=== PATIENT | male | born 1980 | race African-American/Black ===

== ENCOUNTER 2021-05-20 17:57 | Inpatient (IN) | payer BC ==
[~2021-05-20] VITALS: Ht 195.6 cm; Wt 108.9 kg
[2021-05-20 18:14] VITALS: BP 108/68
[2021-05-20 19:15] LABS: ABSOLUTE NEUTROPHILS 3.4 thou/uL (1.4-8.2); BASOPHILS 0.5 % (0.0-2.0); HEMATOCRIT 42.6 % (42.0-52.0); MCH 28.6 pg (26.0-34.0); MCHC 35.2 g/dL (28.0-37.0); MCV 81.4 fL (80.0-100.0); MONOCYTES 11.9 % (1.0-8.0); PLATELET COUNT 368 thou/uL (150-400); POLYS 73.6 % (36.0-66.0); RBC 5.23 mil/uL (4.50-6.00); RDW 12.7 % (10.5-14.5); WBC 4.7 thou/uL (4.0-11.0)
[2021-05-20 19:27] LABS: CALCIUM 8.5 mg/dL (8.5-10.1); CREATININE 1.3 mg/dL (0.7-1.3); POTASSIUM 4.1 mmol/L (3.5-5.1)
[2021-05-20 19:33] LABS: ALBUMIN 3.4 g/dL (3.4-5.0); TOTAL BILIRUBIN 0.6 mg/dL (0.2-1.0); TOTAL PROTEIN 8.5 g/dL (6.4-8.2)
[2021-05-21 06:52] LABS: HEMATOCRIT 41.3 % (42.0-52.0); HEMOGLOBIN 13.7 gm/dL (14.0-18.0); MCH 27.8 pg (26.0-34.0); MCHC 33.2 g/dL (28.0-37.0); MCV 83.7 fL (80.0-100.0); RBC 4.93 mil/uL (4.50-6.00); RDW 13.2 % (10.5-14.5)
[2021-05-21 07:11] LABS: CALCIUM 8.4 mg/dL (8.5-10.1); CREATININE 1.1 mg/dL (0.7-1.3); POTASSIUM 4.8 mmol/L (3.5-5.1); TOTAL BILIRUBIN 0.4 mg/dL (0.2-1.0); TOTAL PROTEIN 8.1 g/dL (6.4-8.2)
[2021-05-21] MEDS ORDERED: DEXAMETHASONE 44 M1 PO (11:11)
[2021-05-21 17:57] VITALS: BP 120/66
[2021-05-21 18:44] VITALS: BP 120/66
== END 2021-05-21 19:23 | disposition home or self-care (01) | DRG 177 ==
LOC: ER 17:57 → EROBS 20:48
PROVIDERS: Nurse Practitioner; Nurse Practitioner Family; ADMIT Hospitalist; ATTEND Hospitalist
DX: U07.1 COVID-19 (principal); J96.01 Acute respiratory failure with hypoxia; J12.82 Pneumonia due to coronavirus disease 2019